=== PATIENT | male | born 1990 | race Caucasian/White ===

== ENCOUNTER 2023-05-22 14:16 | Outpatient (CLI) | payer OTHER | END 2023-05-22 14:17 | disposition home or self-care (01) | LOC: SCSRAD 14:16 | PROVIDERS: ATTEND Student in an Organized Health Care Education/Training Program | DX: R21 Rash and other nonspecific skin eruption (principal); L52 Erythema nodosum; M25.473 Effusion, unspecified ankle; R53.83 Other fatigue; R05.9 Cough, unspecified; R89.9 Unspecified abnormal finding in specimens from other organs, systems and tissues; Z87.81 Personal history of (healed) traumatic fracture; Z80.0 Family history of malignant neoplasm of digestive organs; Z87.891 Personal history of nicotine dependence | CPT/HCPCS: 71046 ==